=== PATIENT | male | born 1945 | race Caucasian/White ===

== ENCOUNTER 2023-02-18 13:14 | Emergency (ER) | payer MEDICARE ==
[~2023-02-18] VITALS: Ht 177.8 cm; Wt 71.2 kg
[2023-02-18] MEDS ORDERED: MINO2.5T PO (13:27)
[2023-02-18] MEDS ORDERED: FINA5TAB3 PO (13:27)
[2023-02-18] MEDS ORDERED: ROSU10TA2 PO (13:27)
[2023-02-18] MEDS ORDERED: IBUPROFEN 600 MG TABLET PO ONE (13:30)
--- NOTE | 2023-02-18 13:30 | NUR ---
Pt seen and examined by Dr. Gloria.
[2023-02-18] MEDS ORDERED: IBUPROFEN 600 MG TABLET ONE (13:37)
--- NOTE | 2023-02-18 13:56 | NUR ---
Right elbow cared as ordered. left covered with 4X4 and coband band.
--- NOTE | 2023-02-18 14:10 | NUR ---
Dr. Gloria discussed care plan with pt. and who remains at bedside.
--- NOTE | 2023-02-18 14:11 | NUR ---
DCD instructions discussed with both pt. and . Patient left room steady gait, [id number]. no c/of pain.steady gait.
== END 2023-02-18 14:14 | disposition home or self-care (01) ==
LOC: ER 13:16
DX: S51.011A Laceration without foreign body of right elbow, initial encounter (principal); S46.911A Strain of unspecified muscle, fascia and tendon at shoulder and upper arm level, right arm, initial encounter; S60.221A Contusion of right hand, initial encounter; Z79.899 Other long term (current) drug therapy; W18.39XA Other fall on same level, initial encounter; Y93.89 Activity, other specified; Y92.89 Other specified places as the place of occurrence of the external cause; Y99.8 Other external cause status
CPT/HCPCS: 73030; 73080; 73130; A4663